=== PATIENT | female | born 1980 | race Caucasian/White ===

== ENCOUNTER 2016-06-17 10:15 | Outpatient (CLI) | payer OTHER | END 2016-06-17 10:16 | disposition home or self-care (01) | DX: B96.81 Helicobacter pylori [H. pylori] as the cause of diseases classified elsewhere (principal) ==

== ENCOUNTER 2016-06-28 18:01 | Outpatient (CLI) | payer OTHER | END 2016-06-28 18:02 | disposition home or self-care (01) | DX: R10.84 Generalized abdominal pain (principal) ==

== ENCOUNTER 2016-07-24 07:47 | Outpatient (CLI) | payer OTHER ==
[2016-07-24] MEDS ORDERED: IOPAMIDOL-300 100 ML VIAL IVP ONE (09:04)
== END 2016-07-24 07:48 | disposition home or self-care (01) ==
DX: R10.84 Generalized abdominal pain (principal)
CPT/HCPCS: 74177; Q9967

== ENCOUNTER 2016-08-25 11:34 | Outpatient (CLI) | payer OTHER | END 2016-08-25 11:35 | disposition home or self-care (01) | DX: Z33.1 Pregnant state, incidental (principal) ==